=== PATIENT | male | born 1995 | race Asian ===

== ENCOUNTER 2017-01-15 12:13 | Outpatient (CLI) | payer BC | END 2017-01-15 19:10 | disposition home or self-care (01) | LOC: RAD 12:13 | DX: M25.511 Pain in right shoulder (principal) ==

== ENCOUNTER 2017-09-28 10:35 | Emergency (ER) | payer BC ==
[~2017-09-28] VITALS: Ht 185.4 cm; Wt 79.4 kg
== END 2017-09-28 11:45 | disposition home or self-care (01) ==
LOC: ED 10:35
DX: M25.561 Pain in right knee (principal)
CPT/HCPCS: 99281

== ENCOUNTER 2020-03-16 20:04 | Emergency (ER) | payer OTHER ==
[~2020-03-16] VITALS: Ht 185.4 cm; Wt 81.6 kg
[2020-03-16 21:12] LABS: PLATELET COUNT 106 K/uL (142-355)
[2020-03-16 21:13] LABS: POTASSIUM 3.6 mmol/L (3.6-5.2)
[2020-03-16 22:44] VITALS: BP 122/76; TEMP 99
== END 2020-03-16 22:45 | disposition home or self-care (01) ==
LOC: ED 20:04
PROVIDERS: Family Medicine
DX: J69.0 Pneumonitis due to inhalation of food and vomit (principal)
CPT/HCPCS: 36415; 80053; 85027; 96372; 99283; J1020; J1100

== ENCOUNTER 2020-04-20 17:38 | Emergency (ER) | payer OTHER ==
[~2020-04-20] VITALS: Ht 185.4 cm; Wt 81.6 kg
[2020-04-20 18:37] LABS: PLATELET COUNT 172 K/uL (142-355)
[2020-04-20 18:42] LABS: POTASSIUM 3.8 mmol/L (3.6-5.2); SODIUM 140 mmol/L (136-145)
[2020-04-20 18:55] LABS: PARTIAL THROMBOPLASTIN TIME 27.8 SECONDS (24.5-33.6)
[2020-04-20 19:55] VITALS: BP 110/63; TEMP 98.6
== END 2020-04-20 20:00 | disposition home or self-care (01) ==
LOC: ED 17:38
PROVIDERS: Family Medicine
DX: R07.89 Other chest pain (principal); M94.0 Chondrocostal junction syndrome [Tietze]
CPT/HCPCS: 36415; 80053; 82550; 82553; 84484; 85027; 85610; 85730; 93005; 99283; J1885

== ENCOUNTER 2020-04-21 15:48 | Emergency (ER) | payer OTHER ==
[~2020-04-21] VITALS: Ht 185.4 cm; Wt 81.6 kg
[2020-04-21 16:06] VITALS: TEMP 98.9
[2020-04-21 16:45] VITALS: BP 130/78
== END 2020-04-21 16:45 | disposition home or self-care (01) ==
LOC: ED 15:48
DX: M79.18 Myalgia, other site (principal); R07.89 Other chest pain
CPT/HCPCS: 99281; J1885